=== PATIENT | female | born 1955 | race African-American/Black ===

== ENCOUNTER 2016-10-10 15:45 | Emergency (ER) | payer OTHER ==
[~2016-10-10] VITALS: Ht 157.5 cm; Wt 81.8 kg
[~2016-10-10 15:45] MED LIST: AMBIEN5 MG PO; ASPIR 8181 M1 PO; AZITHROMYCIN250 MG1 PO; BENICAR HCT 201 EACH PO; FLEXERIL10 MG PO; KLOR-CON 1010 ME1 PO; LANTUS 10100 UNITS/ SC; MOBIC7.5 MG PO; NAPROXEN500 MG PO; NORMODYNE,TRAN200 MG PO; NOVOLOG 10100 UNITS/ SC; OMEPRAZOLE20 MG PO; PERCOCET 5/31 TABLET PO; SIMVASTATIN40 MG PO; VICODIN HP 10-1 EACH PO; VITAMIN D31000 UNIT PO
[2016-10-10 17:47] VITALS: BP 129/76
== END 2016-10-10 18:59 | disposition left against medical advice (07) ==
LOC: EME 15:45
DX: M25.561 Pain in right knee (principal); M25.551 Pain in right hip; Z53.21 Procedure and treatment not carried out due to patient leaving prior to being seen by health care provider